=== PATIENT | male | born 1955 | race Caucasian/White ===

== ENCOUNTER → 2019-08-31 | Outpatient (CLI) | payer OTHER, SELFPAY ==
[2019-08-31 10:51] LABS: ALB/GLOB Ratio 1.2 RATIO (0.9-2.4); AST(SGOT) 24 U/L (15-37); Alanine Aminotransfer ALT/SGPT 51 U/L (16-61); Albumin, Serum 4.1 g/dL (3.2-5.0); Alkaline Phosphatase 55 U/L (45-117); Anion Gap 7 (5-15); BUN 16 mg/dL (7-18); BUN/Creat Ratio 16.9 RATIO (10-20); Calcium,Total 8.8 mg/dL (8.5-10.1); Chloride 106 mmol/L (98-107); Creatinine, Serum 0.95 mg/dL (0.70-1.30); EST Glomerular Filtration Rate 85 mL/min (>60); Est Glom Filt Rate - Afr Amer 103 mL/min (>60); Globulin 3.3 g/dL (2.2-4.2); Glucose 96 mg/dL (74-106); PSA,Total - Annual Screen 2.42 ng/mL (0.00-4.00); Potassium 3.8 mmol/L (3.5-5.1); Protein, Total 7.4 g/dL (6.4-8.2); Sodium Level 138 mmol/L (136-145)
== END | disposition home or self-care (01) ==
LOC: MFPLAB 09:15
PROVIDERS: PCP Family Medicine; Visit Provider Family Medicine
DX: R73.01 Impaired fasting glucose (principal); Z12.5 Encounter for screening for malignant neoplasm of prostate
CPT/HCPCS: 36415; 80053; 84153; G0103

== ENCOUNTER → 2019-11-11 | Outpatient (CLI) | payer OTHER, SELFPAY ==
--- NOTE | 2019-11-11 13:25 | NEURO_ITS ---
NCS and/or EMG Patient Report Ordering Doctor: Daniel Matos DATE OF SERVICE: 11/11/19 Clyde Hall is a 64-year-old male presents for electrodiagnostic testing of the upper limbs. He has numbness and tingling in both hands, worse on the left side. Electrodiagnostic findings nerve conduction study, right median motor nerve demonstrates significantly prolonged distal latency with reduced amplitude and conduction velocity. Left median motor nerve demonstrates a significantly prolonged distal latency with normal amplitude and reduced conduction velocity. Normal ulnar motor responses noted bilaterally, including conduction across the elbow. Prolonged right median F wave bilaterally. Absent median sensory re sponses at the wrist and palm. On needle EMG, 1+ fibrillations noted in the left first dorsal interosseous. All other muscles tested showed no evidence of denervation with normal motor unit action potentials. Electrodiagnostic impression: This is an abnormal study in the upper limbs. 1. Electrodiagnostic findings demonstrate bilateral median mononeuropathy. This is consistent with an advanced bilateral carpal tunnel syndrome.
== END | disposition home or self-care (01) ==
LOC: PSN 11:25
PROVIDERS: PCP Family Medicine; Referring Provider Family Medicine; Visit Provider Family Medicine
DX: G52.9 Cranial nerve disorder, unspecified (principal); G56.00 Carpal tunnel syndrome, unspecified upper limb
CPT/HCPCS: 95886; 95913

== ENCOUNTER 2019-12-25 07:15 | Day surgery (SDC) | payer OTHER, SELFPAY ==
[2019-12-17 08:36] VITALS: BMI 25.0
[2019-12-25] VITALS (7 sets, daily range): BP systolic 103–145; BP diastolic 71–92; PULSE 60–69; RESP 14–16; TEMP 36.1–37.1; O2SAT 65–98; BMI 22.6
[2019-12-25] MEDS: Lactated Ringers 1,000 ML 100 ML IV (07:59)
[2019-12-25] MEDS: Cefazolin 2 GM in 0.9% Normal Saline 100 ML IV (08:14)
[2019-12-25] MEDS: Mupirocin Ointment 22gm Tube 1 APPLIC (08:39)
[2019-12-25] MEDS: Bupivacaine Mpf 0.5% 30 ML VIAL (08:46)
[2019-12-25] MEDS: Triamcinolone Acetonide 40 MG/ML Vial (08:49)
--- NOTE | 2019-12-25 09:05 | OP.PCM_ITS ---
Report of Operation Date of Procedure: 12/25/19 Pre-Operative Diagnosis: BILATERAL CARPAL TUNNEL SYNDROME Post-Operative Diagnosis: SAME Surgery/Procedure Performed:: RIGHT carpal tunnel release, left carpal tunnel injection Type of Anesthesia:: Yao Meeks Anesthesiologist: Magnus Luke Estimated Blood Loss (mL): none Fluids Replaced: see chart Description of Procedure: Preoperative note Patient is a 64 year old patient with nerve conduction study confirming bilateral carpal tunnel syndrome. Patient failed conservative treatment for her carpal tunnel elected proceed with right carpal tunnel release, left carpal tunnel injection. Risks benefits and alternatives surgery discussed with patient. Risks including but not limited to blood loss, blood clot, infection, neurovascular injury, failure procedure, loss of life and loss of limb. Patient is aware like proceed with right carpal tunnel release. Operative note Patient seen and examined preoperative holding area. right hand was marked. History and physical and consent reviewed. Patient was brought to the operating room placed supine on the operating table. Sign in, anesthesia, antibiotics were administered. right upper extremity was prepped and draped after [place] block was initiated. All bony prominences well-padded SCDs placed on bilateral lower extremities. We marked out our incisions for our carpal tunnel release at the intersection of Albin's line in the fourth ray flexed. We extended about a centimeter and a half. Timeout was performed. We then checked ensure that the [place] block was working with pickups which it was. We then used a 15 blade to make a skin incision. We then dissected down tenotomy syllable of the transverse carpal ligament. We then used a new 15 blade cut through the transverse carpal ligament down to the level of the median nerve. We then further released the median nerve the combination of the 15 blade and tenotomies. The nerve was grayish in color and adherent to the transverse carpal ligament volarly. We released the transverse carpal ligament distally to the fat pad and then proximally under standard technique. We then palpated to ensure that we released all of the transverse carpal ligament which we did. We irrigated the incision with copious amounts of sterile saline. All bleeders were coagulated. The incision was closed with interrupted 4-0 nylon stitches. Tourniquet was deflated for total working time of 13 minutes. We then moved to our carpal tunnel injection on the left. Under standard technique the left carpal tunnel was injected with 1 cc Carbiset Vivacaine half cc Kenalog 40. Patient tolerated procedure well there were no complications. Patient transferred to recovery room in stable condition. Postoperative note Hospital pharmacy has prescription Leave dressing clean dry and intact Follow-up in 2 weeks Call with concerns This note was generated with [employer] dictation software. It may contain incorrect words, spelling, and punctuation that were not noted in checking the note before signing
--- NOTE | 2019-12-25 09:05 | DCINST_ITS ---
Discharge Diet: No Restrictions - Leave dressing on until seen in postop clinic in 10-14 days for suture removal, keep dressing clean, dry, intact; change dressing if gets wet/dirty, call with concerns Discharge Activity: May Not Drive May shower in (days): 1 Ice area for (Minutes): 20 - Every hour while awake. Weight Bearing Status: Weight bearing as tolerated Keep extremity elevated above heart level: Operative Extremity Call your doctor if your incision/area has: Continuous Slow Oozing, Sudden Increased Bleeding, Increased Pain/ Swelling, Increased Redness, Foul Smelling Discharge Call your doctor if you observe: Fever of 101 or Higher, Coldness, Increased Pain, Numbness or Tingling, Change in Color, Calf discomfort Allergies/Adverse Reactions: Allergies No Known Allergies Allergy (Verified 12/25/19 07:34) Medications to take at Discharge atorvastatin 40 mg tablet 40 mg PO DAILY 12/17/19 Ibuprofen [Advil] 200 mg PO PRN PRN 12/18/19 Acetaminophen/Codeine #3 [Tylenol #3 Tablet] 1 - 2 tablet PO Q6H PRN PRN #30 tablet 12/25/19 The following prescriptions were given: Acetaminophen/Codeine #3 [Tylenol #3 Tablet] 1 - 2 tablet PO Q6H PRN PRN #30 tablet PRN Reason: Pain Transmission Status: Sent to [facility] Primary Care Physician: Daniel Matos MD [Primary Care Provider] - Test Results: Test results from this visit will be discussed in further detail at your follow- up appointment, if applicable. Please Follow Up With: Chayo Baxter, DO - [phone]
--- NOTE | 2019-12-25 09:06 | HP.PCM_ITS ---
History and Physical I have re-examined the patient. There are no clinical changes since date of exam. Intake Vital Signs 12/17/19 Height 6 ft 12/17/19 Weight: 185 lb Intake Visit Reasons: Bilat wrist pain Is patient in pain?: Yes Pain Scale - Faces (1-5): 7 Allergies No Known Allergies Allergy (Unverified 12/17/19 08:39) Medications atorvastatin 40 mg tablet 40 mg PO DAILY 12/17/19 [History Confirmed 12/17/19] [facility] Social History (Updated 12/18/19 @ 13:07 by MARIA D Fan) Smoking Status: Never smoker alcohol intake: never HPI Bilat wrist pain: Details: Parts of this documentation were recorded by a scribe, this documentation accurately reflects the service provided and the decisions made by me, MARIA D Fan 12/17/19 0836. ESTELLA VIORY is a 64 year old M here today for bilateral wrist pain. Patient notes that he has had wrist pain for about 5 years which is progressively worsening. His left hand is worse than his right. Patient complains of pain over all 4 of his fingers. He complains of numbness and tingling into his index finger. Patient notes that he has weakness within his hand. He states that he has wrist brace which is not helpful. He denies any injections or therapy. He had an EMG in October 2019 which is here for review. ROS [facility] Reports joint pain, Reports muscle weakness, Reports numbness, Reports tingling Skin/Breast Reports system reviewed and no additional complaints, except as docu Neuro Yes system reviewed and no additional complaints, except as docu, Yes numbness, Yes tingling Ortho Exam Right Wrist/Hand Skin/Wound: No Swelling, No Ecchymosis, Yes capillary refill normal Right Wrist: Yes ROM-Extension 0-60, ROM-Flexion 0-80, Durken's Test, Phalen's and Thenar Atrophy Sensation: Radial: I, Ulnar: I, Median: D WRIST: No acute abnormalities on inspection. No localized or generalized swelling. No skin changes. Forms of motion and strength of the wrist. Moderate decrease in median nerve distribution. Positive carpal tunnel signs. He does have evidence of thenar eminence atrophy compared to the left side. Left Wrist/Hand Skin/Wound: No Swelling, No Ecchymosis Left Wrist: Yes ROM-Extension 0-60, Yes ROM-Flexion 0-80, Yes Durken's Test and Yes Tinel's Sensation: Ulnar: I, Median: D WRIST: Inspection of the left hand shows no acute abnormalities. No localized or generalized swelling. No skin changes. Full range of motion of the wrist. Patient has decreased sensation in the median nerve distribution primarily in the index finger. No evidence of major wasting in the thenar eminence. He does have positive carpal tunnel signs. Assessment & Plan Problems 1. Bilateral carpal tunnel syndrome G56.03 Plan Patient presents the office today with a many year history of numbness and tingling into the fingers/hands. Patient has gradually began to have weakness with use of the hand/fingers. His physical exam findings are suggestive of carpal tunnel syndrome which does correspond with recent EMG/NCS. There is evidence of atrophy noted primarily in the right hand and maybe early signs in the left. The left hand however give him more pain and problems with use. At this time we discussed options and patient is already done conservative care from bracing and some therapies. Patient would like to proceed with surgical intervention at this time. He would like to start with the left hand and then have the right hand after the left heels. We will do an injection into the right hand during the operation to get him to his surgery. Risks and benefits of the procedure were discussed with patient's in particular that with some atrophy already noted that sometimes the nerves even after procedure will never regenerate 100%. Oftentimes this is done to prevent progression of the carpal tunnel as opposed to fixing/healing the nerve. We did discuss risk for COVID-19 having an inpatient procedure. Patient is aware of these risks. Consent was signed in office today. Patient be notified by our office to determine the day of his surgery. He will also be notified by surgery for preanesthesia/surgery testing. He will also have a COVID-19 test done 72 hours prior. Patient was given antimicrobial scrub to be used night before starting in the base of the neck going down to the fingertips. He is to notify our office if he has any other questions, concerns, or complaints in the meantime. This note was generated with [employer] software. It may contain incorrect words, spelling, and punctuation that were not noted in checking the note before signing. Coding Level of Care Code Off vis,new,level 3 Diagnoses Bilateral carpal tunnel syndrome G56.03
[2019-12-25] MEDS: HYDROcodone Bitartrate/Apap 5/325 Tablet PO (09:59)
== END 2019-12-25 10:25 | disposition home or self-care (01) ==
LOC: SDC 07:15 → AC 07:16
PROVIDERS: PCP Family Medicine; Referring Provider Orthopaedic Surgery; Visit Provider Orthopaedic Surgery
PROC: (CPT 64721; principal; 2019-12-25 08:25)
DX: G56.03 Carpal tunnel syndrome, bilateral upper limbs (principal)
CPT/HCPCS: 01810; 20605; 64721; 87635; 94799; J7120; A4216; U0003

== ENCOUNTER → 2020-09-01 09:46 | Outpatient (CLI) | payer OTHER, SELFPAY ==
[2020-09-01 12:47] LABS: ALB/GLOB Ratio 1.2 RATIO (0.9-2.4); AST(SGOT) 21 U/L (15-37); Alanine Aminotransfer ALT/SGPT 50 U/L (16-61); Albumin, Serum 3.9 g/dL (3.2-5.0); Alkaline Phosphatase 59 U/L (45-117); Anion Gap 9 (5-15); BUN 21 mg/dL (7-18); BUN/Creat Ratio 22.8 RATIO (10-20); Calcium,Total 8.6 mg/dL (8.5-10.1); Chloride 104 mmol/L (98-107); Creatinine, Serum 0.92 mg/dL (0.70-1.30); EST Glomerular Filtration Rate 88 mL/min (>60); Est Glom Filt Rate - Afr Amer 107 mL/min (>60); Globulin 3.3 g/dL (2.2-4.2); Glucose 99 mg/dL (74-106); PSA,Total - Annual Screen 2.73 ng/mL (0.00-4.00); Potassium 4.1 mmol/L (3.5-5.1); Protein, Total 7.2 g/dL (6.4-8.2); Sodium Level 138 mmol/L (136-145)
[2020-09-05 18:41] LABS: Cholesterol 236 mg/dL (200); High Density Lipoprotein 42 mg/dL; Triglycerides 172 mg/dL; Very Low Density Lipoprotein 34 mg/dL (5-40)
== END ==
PROVIDERS: PCP Family Medicine; Referring Provider Family Medicine; Visit Provider Family Medicine
DX: R73.01 Impaired fasting glucose (principal); Z12.5 Encounter for screening for malignant neoplasm of prostate; E78.00 Pure hypercholesterolemia, unspecified
CPT/HCPCS: 36415; 80053; 80061; 84153; G0103

== ENCOUNTER → 2021-09-07 | Outpatient (CLI) | payer OTHER, SELFPAY ==
[2021-09-07 10:31] LABS: ALB/GLOB Ratio 1.1 RATIO (0.9-2.4); AST(SGOT) 19 U/L (15-37); Alanine Aminotransfer ALT/SGPT 40 U/L (16-61); Albumin, Serum 3.8 g/dL (3.2-5.0); Alkaline Phosphatase 58 U/L (45-117); Anion Gap 7 (5-15); BUN 18 mg/dL (7-18); BUN/Creat Ratio 19.9 RATIO (10-20); Calcium,Total 8.5 mg/dL (8.5-10.1); Chloride 107 mmol/L (98-107); Cholesterol 238 mg/dL (200); EST Glomerular Filtration Rate 90 mL/min (>60); Est Glom Filt Rate - Afr Amer 109 mL/min (>60); Globulin 3.6 g/dL (2.2-4.2); Glucose 101 mg/dL (74-106); High Density Lipoprotein 41 mg/dL; PSA,Total - Annual Screen 3.09 ng/mL (0.00-4.00); Potassium 3.8 mmol/L (3.5-5.1); Protein, Total 7.4 g/dL (6.4-8.2); Sodium Level 138 mmol/L (136-145); Triglycerides 136 mg/dL; Very Low Density Lipoprotein 27 mg/dL (5-40)
== END | disposition home or self-care (01) ==
LOC: MFPLAB 09:10
PROVIDERS: PCP Family Medicine; Visit Provider Family Medicine
DX: E78.00 Pure hypercholesterolemia, unspecified (principal); Z12.5 Encounter for screening for malignant neoplasm of prostate
CPT/HCPCS: 36415; 80053; 80061; 84153; G0103

== ENCOUNTER → 2021-11-02 | Outpatient (CLI) | payer OTHER, SELFPAY ==
--- NOTE | 2021-11-02 | IMM_PTH ---
PATIENT: ESTELLA IVORY LOC: [facility] U#:[id number] AGE/SX: 66/M ROOM: RE11/02/[address]: Dr. Tyson Farah DO : 1955 BED: DIS: 11/02/2021 SPEC #: [id number] RECD: 11/06/21 14:35 STATUS: SOUApple REQ #: [id number] JAKE: 11/02/21 00:[address]: Tyson Farah DEPT: IMMUNOHISTOCHEMISTRY RECD BY: Frances Bermudez ENTERED: 11/06/21 14:36 SP TYPE: IMMUNO OTHR DR: Dr. Gary Matos MD Tissues: Wrist, NOS Procedures: SMA (add) CD31 (add) CD34 (add) CK7 (add) DESMIN (add) Vimentin (add) FACTOR VIII (add) Pankeratin (initial) MELAN-A (add) S-100 (add) PHYSICIAN & INSTITUTION [address] [address] SPECIMEN INFORMATION: Tissue Source: Right wrist mass Clinical Info: Carpal tunnel syndrome, right upper limb, ganglion right wrist Specimen Number: [id number] CPT code: 26126, 33759 x9 METHODOLOGY: Deparaffinized sections of prefer/formalin-fixed tissue or PAP/DQ stained slides are incubated with monoclonal/polyclonal antibodies/oligonucleotide probes. Localization is made via biotin free immunoperoxidase method. Appropriate controls are performed and reacted as expected. Results on target cell population are indicated in the following table: RESULTS: ANTIBODY / CLONE RESULT AE1-3 (AE1/AE3/PCK26) negative CK7 (OV-TL12/30) negative Vimentin (V9) positive CD31 (DEWAYNE/70A) positive, focal Factor VIII (R Ag) positive, focal CD34 (QBEnd-10) negative Actin (1A4) negative Desmin (CE-R-11) negative Melan A (A103) negative S-100 (4C4.9) positive These tests were developed and their performance characteristics determined by [facility]. They may not have been cleared or approved by the U.S. Food and Drug Administration. The FDA has determined that such clearance or approval is not necessary. The above immunohistochemical/dualISH markers are ordered and reviewed by the Pathologist. INTERPRETATION: Right wrist mass, excision: Consistent with schwannoma. DARCY:dexter 11/07/2021
--- NOTE | 2021-11-02 10:02 | MASS_PTH ---
PATIENT: ESTELLA IVORY [facility] U#:[id number] AGE/SX: 66/M ROOM: RE11/02/[address]: Dr. Tyson Farah DO : 1955 BED: DIS: 11/02/2021 SPEC #: [id number] RECD: 11/02/21 14:58 STATUS: RUBINA REQ #: [id number] JAKE: 11/02/21 10:[address]: Tyson Farah DEPT: SURGICAL PATHOLOGY RECD BY: Jess Noriega ENTERED: 11/03/21 08:37 SP TYPE: Mass OTHR DR: Dr. Gary Matos MD [facility] Tissues: Wrist, NOS Procedures: Surgery Specimen Level IV HEADER OPERATION: Right carpal tunnel release, right dorsal wrist ganglion cyst PRE-OP DIAGNOSIS: Carpal tunnel syndrome, right upper limb, ganglion right wrist TISSUE SUBMITTED: Right wrist mass MICROSCOPIC DIAGNOSIS Right wrist mass, excision: Consistent with schwannoma. See comment. DARCY:dexter 11/06/2021 COMMENT Immunohistochemistry ([id number]) supports the above diagnosis. Case has been reviewed in consultation with Dr. Almeida who concurs with the above diagnosis. IDC:AM MICROSCOPIC DESCRIPTION Slides are reviewed. GROSS DESCRIPTION Received in fixative is one container labeled with the patient's name and designated right wrist mass. The specimen consists of a round piece of maldonado-light yellow nodule measuring 0.8 x 0.7 x 0.6 cm. The specimen is inked, serially sectioned and submitted entirely in one cassette. / DARCY:dexter 11/03/2021 TC:1 CPT: 20134
== END | disposition home or self-care (01) ==
LOC: LABSPEC 15:08
PROVIDERS: PCP Family Medicine; Visit Provider Student in an Organized Health Care Education/Training Program
DX: M67.431 Ganglion, right wrist (principal); G56.01 Carpal tunnel syndrome, right upper limb
CPT/HCPCS: 88305; 88341; 88342

== ENCOUNTER → 2022-09-10 | Outpatient (CLI) | payer OTHER, SELFPAY ==
[2022-09-10 10:45] LABS: ALB/GLOB Ratio 1.2 RATIO (0.9-2.4); AST(SGOT) 14 U/L (15-37); Alanine Aminotransfer ALT/SGPT 39 U/L (16-61); Albumin, Serum 3.8 g/dL (3.2-5.0); Alkaline Phosphatase 57 U/L (45-117); Anion Gap 9 (5-15); BUN 20 mg/dL (7-18); BUN/Creat Ratio 19.6 RATIO (10-20); Calcium,Total 8.7 mg/dL (8.5-10.1); Chloride 106 mmol/L (98-107); Cholesterol 133 mg/dL (200); Creatinine, Serum 1.02 mg/dL (0.70-1.30); EST Glomerular Filtration Rate 78 mL/min (>60); Est Glom Filt Rate - Afr Amer 94 mL/min (>60); Globulin 3.2 g/dL (2.2-4.2); Glucose 104 mg/dL (74-106); High Density Lipoprotein 42 mg/dL; PSA,Total - Annual Screen 4.31 ng/mL (0.00-4.00); Potassium 4.3 mmol/L (3.5-5.1); Sodium Level 139 mmol/L (136-145); Triglycerides 105 mg/dL; Very Low Density Lipoprotein 21 mg/dL (5-40)
== END | disposition home or self-care (01) ==
LOC: MFPLAB 08:51
PROVIDERS: PCP Family Medicine; Visit Provider Family Medicine
DX: E78.00 Pure hypercholesterolemia, unspecified (principal); Z12.5 Encounter for screening for malignant neoplasm of prostate
CPT/HCPCS: 36415; 80053; 80061; 84153; G0103

== ENCOUNTER → 2023-03-12 | Outpatient (CLI) | payer OTHER, SELFPAY ==
[2023-03-13 13:07] LABS: PSA, Free 0.77 ng/mL; PSA, Free % 22.6 % (.)
== END | disposition home or self-care (01) ==
LOC: MFPLAB 08:24
PROVIDERS: PCP Family Medicine; Visit Provider Family Medicine
DX: R97.20 Elevated prostate specific antigen [PSA] (principal)
CPT/HCPCS: 36415; 84153; 84154

== ENCOUNTER → 2023-10-29 | Outpatient (CLI) | payer MEDICARE, OTHER, SELFPAY ==
[2023-10-29 12:26] LABS: ALB/GLOB Ratio 1.2 RATIO (0.9-2.4); AST(SGOT) 17 U/L (15-37); Alanine Aminotransfer ALT/SGPT 37 U/L (16-61); Albumin, Serum 3.9 g/dL (3.2-5.0); Alkaline Phosphatase 57 U/L (45-117); Anion Gap 10 (5-15); BUN 17 mg/dL (7-18); Calcium,Total 8.9 mg/dL (8.5-10.1); Chloride 105 mmol/L (98-107); Cholesterol 222 mg/dL (200); Creatinine, Serum 0.89 mg/dL (0.70-1.30); EST Glomerular Filtration Rate 90 mL/min (>60); Est Glom Filt Rate - Afr Amer 109 mL/min (>60); Globulin 3.3 g/dL (2.2-4.2); Glucose 99 mg/dL (74-106); High Density Lipoprotein 36 mg/dL; PSA,Total- Diagnostic 4.53 ng/mL (0.0-4.0); Protein, Total 7.2 g/dL (6.4-8.2); Sodium Level 138 mmol/L (136-145); Triglycerides 279 mg/dL; Very Low Density Lipoprotein 56 mg/dL (5-40)
== END | disposition home or self-care (01) ==
LOC: MFPLAB 09:24
PROVIDERS: PCP Family Medicine; Visit Provider Family Medicine
DX: E78.00 Pure hypercholesterolemia, unspecified (principal); R97.20 Elevated prostate specific antigen [PSA]
CPT/HCPCS: 36415; 80053; 80061; 84153

== ENCOUNTER → 2023-11-12 | Outpatient (CLI) | payer MEDICARE, SELFPAY ==
--- NOTE | 2023-11-12 07:54 | AAAS_ITS ---
Reason For Study: AAA Screening Aorta Measurements Aorta Doppler Measurements Proximal aorta measures1.92 x 1.94cm. in cross- Peak systolic flow velocities within the proximal sectional axis. aorta measure 88.6 cm/sec. Proximal aorta measures1.99cm. in longitudinal Peak systolic flow velocities within the mid aorta axis. measure 101.3 cm/sec. Mid aorta measures1.56 x 1.59cm. in cross- Peak systolic flow velocities within the distal sectional axis. aorta measure 101.3 cm/sec. Mid aorta measures1.55cm. in longitudinal axis. Distal aorta measures1.34 x1.32cm. in cross- sectional axis. Distal aorta measures1.43cm. in longitudinal axis. Left Iliac Artery Left iliac artery measures 0.85 x 0.85 cm. in the cross-sectional axis. Left iliac artery measures 0.90 cm. in the longitudinal axis. Peak systolic velocity in the left iliac artery measures 109.6 cm/sec. Right Iliac Artery Right iliac artery measures 0.88 x 0.87 cm. in the cross-sectional axis. Right iliac artery measures 0.91 cm. in the longitudinal axis. Peak systolic velocity in the right iliac artery measures 98.2 cm/sec. Procedure Aorta IVC Iliac vasculature or bypass grafts 07262. The exam was diagnostic. Exam performed in department. VL/AAA Screening Interpretation Summary Maximal aortic dimensions proximally at 1.92 x 1.94 cm diameter which is normal . Normal aortic flow velocity is identified. Normal left common iliac artery at 0.85 x 0.85 cm in diameter Normal right common neck artery at 0.88 x 0.87 cm diameter Ordering Physician: Gary Matos Referring Physician: Gary Matos Performed By: Saeed Ramirez, RVT
== END | disposition home or self-care (01) ==
PROVIDERS: PCP Family Medicine; Referring Provider Family Medicine; Visit Provider Family Medicine
DX: Z13.6 Encounter for screening for cardiovascular disorders (principal)
CPT/HCPCS: 76706

== ENCOUNTER → 2023-12-16 | Outpatient (CLI) | payer MEDICARE, SELFPAY ==
--- NOTE | 2023-12-16 07:00 | MRI_ITS ---
STUDY: MRI BRAIN WITH AND WITHOUT CONTRAST (ATTENTION INTERNAL AUDITORY CANALS - I.A.C.''s) REASON FOR EXAM: Male, 68 years old. tinnitus bilateral , asymmetric hearing loss TECHNIQUE: Standardized multiplanar fat and water weighted pulse sequences were obtained. IV 17cc clariscan was administered for the contrast portion of the examination. COMPARISON: None. FINDINGS: Normal bilateral temporal bones. Normal bilateral internal auditory canals. There is no demonstrated intracanalicular or cisternal vestibular schwannoma (acoustic neuroma). There is no enhancement of the bilateral VIIth or VIIIth cranial nerves. Normal bilateral cochlea, vestibules and semicircular canals. There is mild cerebral atrophy with widening of the extra-axial spaces and ventricular dilatation. There are a limited number of small white matter hyperintensities, distributed throughout the deep white matter tracts of the cerebral hemispheres, consistent with mild chronic white matter ischemic changes. There is no evidence for recent intracranial ischemia or other cause of cytotoxic edema on diffusion weighted imaging (DWI). Normal bilateral basal ganglia. Normal thalami. Normal flow voids within the major intracranial circulation suggesting patency by spin echo criteria. Normal venous enhancement. There is no enhancing intra-axial or extra-axial abnormality. There is no extra-axial fluid accumulation. Normal sella turcica, pituitary gland, infundibular stalk, optic chiasm and hypothalamus. Normal tectal plate and pineal gland. Normal midbrain, raven and medulla. Normal cerebellum. Normal basal cisterns. No demonstrated orbital abnormality, within the constraints of a routine brain study. Normal visualized paranasal sinuses. Normal calvarium and skull base. Normal visualized soft tissue structures. Normal visualized upper cervical spine. MRI/Brain W/WO Contrast IMPRESSION: Normal unenhanced and enhanced MRI of the bilateral internal auditory canals (I.A.C''s). Electronically Signed: Gilles Chanel MD at 12:09 EDT ,
[2023-12-16 07:06] LABS: CREATININE FINGERSTICK < 1.0 mg/dL (0.70-1.30); EGFR FINGERSTICK > 60.0000 mL/min (>60)
== END | disposition home or self-care (01) ==
LOC: MRI 06:25
PROVIDERS: PCP Family Medicine; Referring Provider Otolaryngology; Visit Provider Otolaryngology
DX: Z01.812 Encounter for preprocedural laboratory examination (principal); H93.13 Tinnitus, bilateral; H90.3 Sensorineural hearing loss, bilateral
CPT/HCPCS: 70553; A9575

== ENCOUNTER → 2024-09-23 | Outpatient (CLI) | payer MEDICARE, OTHER, SELFPAY ==
[2024-09-23 13:24] LABS: ALB/GLOB Ratio 1.7 RATIO (0.9-2.4); AST(SGOT) 25 U/L (<=37); Alanine Aminotransfer ALT/SGPT 39 U/L (<=46); Albumin, Serum 4.5 g/dL (3.4-4.8); Alkaline Phosphatase 64 U/L (40-129); Anion Gap 12 (5-15); BUN 17 mg/dL (4-19); BUN/Creat Ratio 18.6 RATIO (10-20); Carbon Dioxide 23.6 mmol/L (21.0-32.0); Chloride 105 mmol/L (98-108); Cholesterol 136 mg/dL (<=200); Creatinine, Serum 0.92 mg/dL (0.70-1.20); EST Glomerular Filtration Rate 92 (>60); Globulin 2.6 g/dL (2.2-4.2); Glucose 99 mg/dL (70-99); High Density Lipoprotein 41 mg/dL; Low Density Lipoprotein Calc. 77 mg/dL; Potassium 4.5 mmol/L (3.3-5.1); Protein, Total 7.1 g/dL (5.9-8.4); Sodium Level 141 mmol/L (133-145); Total Bilirubin 0.27 mg/dL (0.00-1.30); Triglycerides 87 mg/dL; Very Low Density Lipoprotein 17 mg/dL (5-40); cholesterol:hdl ratio screen 3.29
[2024-09-24 14:08] LABS: PSA, Free 0.97 ng/mL; PSA, Free % 22.5 % (.)
== END | disposition home or self-care (01) ==
LOC: MFPLAB 09:18
PROVIDERS: PCP Family Medicine; Referring Provider Family Medicine; Visit Provider Family Medicine
DX: E78.00 Pure hypercholesterolemia, unspecified (principal); R97.20 Elevated prostate specific antigen [PSA]
CPT/HCPCS: 36415; 80053; 80061; 84153; 84154